=== PATIENT | female | born 1995 | race Caucasian/White ===

== ENCOUNTER 2021-12-28 16:22 | Emergency (ER) | payer SELFPAY ==
[~2021-12-28] VITALS: Ht 157.5 cm; Wt 120.0 kg
[2021-12-28 17:21] VITALS: BP 122/72
== END 2021-12-28 19:53 | disposition left against medical advice (07) ==
LOC: ER 16:22
DX: R22.41 Localized swelling, mass and lump, right lower limb (principal); Z53.21 Procedure and treatment not carried out due to patient leaving prior to being seen by health care provider
CPT/HCPCS: 99281

== ENCOUNTER 2024-02-06 21:53 | Emergency (ER) | payer MEDICAID, OTHER ==
[~2024-02-06] VITALS: Ht 165.1 cm; Wt 130.7 kg
[2024-02-06 22:12] VITALS: O2SAT 98
[2024-02-06] MEDS: CYCLOBENZAPRINE 10MG TABLET PO ONE (23:15)
[2024-02-06] MEDS: KETOROLAC 30MG/ML VIAL IM ONE (23:15)
[2024-02-06] MEDS ORDERED: CYCL10TA21 MT (23:38)
[2024-02-06] MEDS ORDERED: NAPR220C61 MT (23:38)
[2024-02-06] MEDS ORDERED: LIDO700A15 TP (23:38)
[2024-02-07 00:06] VITALS: BP 128/88; PULSE 88; RESP 16; TEMP 98.7
== END 2024-02-07 00:08 | disposition home or self-care (01) ==
LOC: ER 21:53
DX: M54.50 Low back pain, unspecified (principal); Z88.0 Allergy status to penicillin
CPT/HCPCS: 99283; 96372; J1885